=== PATIENT | male | born 2000 | race Caucasian/White ===

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

== ENCOUNTER 2019-09-18 05:59 | Emergency (ER) | payer BC, SELFPAY ==
[~2019-09-18] VITALS: Ht 167.6 cm; Wt 95.5 kg
[2019-09-18 08:00] VITALS: BP 136/72
--- NOTE | 2019-09-18 08:01 | REP ---
Clinical: Trauma. Technique: Frontal view of the chest with multiple views of the right hemithorax. Findings: Frontal view of the chest demonstrates no acute cardiopulmonary process. Multiple views of the right hemithorax demonstrates no obvious acute rib fracture or pathology. Impression: Normal right rib series Electronically Signed by Rashad Oliver MD 09/18/2019 07:50 A
== END 2019-09-18 08:04 | disposition home or self-care (01) ==
LOC: M ED 05:59
DX: S20.211A Contusion of right front wall of thorax, initial encounter (principal); W10.8XXA Fall (on) (from) other stairs and steps, initial encounter; Y92.89 Other specified places as the place of occurrence of the external cause; J45.909 Unspecified asthma, uncomplicated

== ENCOUNTER 2020-10-23 13:17 | Emergency (ER) | payer BC, SELFPAY ==
[~2020-10-23] VITALS: Ht 165.1 cm; Wt 97.5 kg
--- OUTSIDE RECORDS SUMMARY | 2020-10-23 13:24 | CCD | Continuity of Care Document ---
Author Author Anastacio MORA P.A. Organization Unknown Address [address] [place] [address] Phone [phone] Care Team Providers Care Drum Operator Name Role Phone Js Co Publi AUTM [phone] Problems Description No Information Available Social History Type Date Description Comments Sex Unknown Tobacco Use Start: Unknown Never Smoked Cigarettes ETOH Use Rarely consumes alcohol Allergies, Adverse Reactions, Alerts Description No Known Drug Allergies Medications Description No Active Medications Immunizations Description No Information Available Vital Signs Date Vital Result Comment 08/29/2020 9:42am BP Systolic 130 mmHg BP Diastolic 80 mmHg Heart Rate 90 /min Respiratory Rate 18 /min O2 % BldC Oximetry 99 % Body Temperature 97.7 F Weight 200.00 lb Height 65 inches 5'5" BMI (Body Mass Index) 33.3 kg/m2 Pain Level 0 Results Description No Information Available Procedures Description No Information Available Medical Devices Description No Information Available Encounters Type Date Location Provider Dx Diagnosis Office Visit 08/29/2020 9:30a [facility] Mehul Ordonez A08.4 Viral intestinal infection, unspecified Z20.828 Contact w and exposure to ot h viral communicable diseases Assessments Date Code Description Provider 08/29/2020 A08.4 Viral intestinal infection, unsp ecified Rosi Ordonez 08/29/2020 Z20.828 Contact with and (ha spected) exposure to other viral communicable diseases Rosi Ordonez Plan of Treatment No Information Available Functional Status Description No Information Available Mental Status Description No Information Available Referrals Description No Information Available
--- OUTSIDE RECORDS SUMMARY | 2020-10-23 13:24 | CCD ---
Author Author [facility] Organization [facility] Address Unknown Phone Unavailable Care Team Providers Care Ornamental Machine Operator Name Role Phone Joyce MARTINEZ MD Unavailable Unavailable Joyce MARTINEZ MD Unavailable Unavailable Joyce MARTINEZ MD Unavailable Unavailable Joyce MARTINEZ MD Unavailable Unavailable Joyce MARTINEZ MD Unavailable Unavailable Joyce MARTINEZ MD Unavailable Unavailable Joyce MARTINEZ MD Unavailable Unavailable Joyce MARTINEZ MD Unavailable Unavailable Joyce MARTINEZ MD Unavailable Unavailable Joyce MARTINEZ MD Unavailable Unavailable Joyce MARTINEZ MD Unavailable Unavailable Joyce MARTINEZ MD Unavailable Unavailable Joyce MARTINEZ MD Unavailable Unavailable Joyce MARTINEZ MD Unavailable Unavailable Joyce MARTINEZ MD Unavailable Unavailable Joyce MARTINEZ MD Unavailable Unavailable Joyce MARTINEZ MD Unavailable Unavailable Joyce MRATINEZ MD Unavailable Unavailable Joyce MARTINEZ MD Unavailable Unavailable Joyce MARTINEZ MD Unavailable Unavailable Joyce MARTINEZ MD Unavailable Unavailable Joyce MARTINEZ MD Unavailable Unavailable Joyce MARTINEZ MD Unavailable Unavailable Joyce MARTINEZ MD Unavailable Unavailable Joyce MARTINEZ MD Unavailable Unavailable Joyce MARTINEZ MD Unavailable Unavailable Joyce MARTINEZ MD Unavailable Unavailable Joyce MARTINEZ MD Unavailable Unavailable Joyce MARTINEZ MD Unavailable Unavailable Joyce MARTINEZ MD Unavailable Unavailable Joyce MARTINEZ MD Unavailable Unavailable Joyce MARTINEZ MD Unavailable Unavailable Joyce MARTINEZ MD Unavailable Unavailable Joyce MARTINEZ MD Unavailable Unavailable Joyce MARTINEZ MD Unavailable Unavailable Joyce MARTINEZ MD Unavailable Unavailable Joyce MARTINEZ MD Unavailable Unavailable Joyce MARTINEZ MD Unavailable Unavailable Joyce MARTINEZ MD Unavailable Unavailable Joyce MARTINEZ MD Unavailable Unavailable Joyce MARTINEZ MD Unavailable Unavailable Joyce MARTINEZ MD Unavailable Unavailable Joyce MARTINEZ MD Unavailable Unavailable Joyce MARTINEZ MD Unavailable Unavailable Joyce MARTINEZ MD Unavailable Unavailable Joyce MARTINEZ MD Unavailable Unavailable Joyce MARTINEZ MD Unavailable Unavailable ABBY, JOSE ROBERTO PA Unavailable Unavailable ABBY, JOSE ROBERTO PA Unavailable Unavailable ABBY, JOSE ROBERTO PA Unavailable Unavailable ABBY, JOSE ROBERTO PA Unavailable Unavailable ABBY, JOSE ROBERTO PA Unavailable Unavailable ABBY, JOSE ROBERTO PA Unavailable Unavailable ABBY, JOSE ROBERTO PA Unavailable Unavailable ABBY, JOSE ROBERTO PA Unavailable Unavailable ABBY, JOSE ROBERTO PA Unavailable Unavailable ABBY, JOSE ROBERTO PA Unavailable Unavailable ABBY, JOSE ROBERTO PA Unavailable Unavailable ABBY, JOSE ROBERTO PA Unavailable Unavailable ABBY, JOSE ROBERTO PA Unavailable Unavailable ABBY, JOSE ROBERTO PA Unavailable Unavailable ABBY, JOSE ROBERTO PA Unavailable Unavailable ABBY, JOSE ROBERTO PA Unavailable Unavailable ABBY, JOSE ROBERTO PA Unavailable Unavailable ABBY, JOSE ROBERTO PA Unavailable Unavailable ABBY, JOSE ROBERTO PA Unavailable Unavailable ABBY, JOSE ROBERTO PA Unavailable Unavailable ABBY, JOSE ROBERTO PA Unavailable Unavailable ABBY, JOSE ROBERTO PA Unavailable Unavailable ABBY, JOSE ROBERTO PA Unavailable Unavailable ABBY, JOSE ROBERTO PA Unavailable Unavailable ABBY, JOSE ROBERTO PA Unavailable Unavailable ABBY, JOSE ROBERTO PA Unavailable Unavailable ABBY, JOSE ROBERTO PA Unavailable Unavailable ABBY, JOSE ROBERTO PA Unavailable Unavailable ABBY, JOSE ROBERTO PA Unavailable Unavailable ABBY, JOSE ROBERTO PA Unavailable Unavailable ABBY, JOSE ROBERTO PA Unavailable Unavailable ABBY, JOSE ROBERTO PA Unavailable Unavailable ABBY, JOSE ROBERTO PA Unavailable Unavailable ABBY, JOSE ROBERTO PA Unavailable Unavailable ABBY, JOSE ROBERTO PA Unavailable Unavailable ABBY, JOSE ROBERTO PA Unavailable Unavailable ABBY, JOSE ROBERTO PA Unavailable Unavailable ABBY, JOSE ROBERTO PA Unavailable Unavailable Joyce MARTINEZ MD Unavailable Unavailable Joyce MARTINEZ MD Unavailable Unavailable Joyce MARTINEZ MD Unavailable Unavailable Joyce MARTINEZ MD Unavailable Unavailable Joyce MARTINEZ MD Unavailable Unavailable Joyce MARTINEZ MD Unavailable Unavailable Joyce MARTINEZ MD Unavailable Unavailable Joyce MARTINEZ MD Unavailable Unavailable Joyce MARTINEZ MD Unavailable Unavailable Joyce MARTINEZ MD Unavailable Unavailable Joyce MARTINEZ MD Unavailable Unavailable Joyce MARTINEZ MD Unavailable Unavailable Joyce MARTINEZ MD Unavailable Unavailable Joyce MARTINEZ MD Unavailable Unavailable Joyce MARTINEZ MD Unavailable Unavailable Joyce MARTINEZ MD Unavailable Unavailable Joyce MARTINEZ MD Unavailable Unavailable Joyce MARTINEZ MD Unavailable Unavailable Joyce MARTINEZ MD Unavailable Unavailable Joyce MARTINEZ MD Unavailable Unavailable Joyce MARTINEZ MD Unavailable Unavailable Joyce MARTINEZ MD Unavailable Unavailable Joyce MRATINEZ MD Unavailable Unavailable Joyce MARTINEZ MD Unavailable Unavailable Joyce MARTINEZ MD Unavailable Unavailable Joyce MARTINEZ MD Unavailable Unavailable Joyce MARTINEZ MD Unavailable Unavailable Joyce MARTINEZ MD Unavailable Unavailable Joyce MARTINEZ MD Unavailable Unavailable Joyce MARTINEZ MD Unavailable Unavailable Joyce MARTINEZ MD Unavailable Unavailable Joyce MARTINEZ MD Unavailable Unavailable Joyce MARTINEZ MD Unavailable Unavailable Joyce MARTINEZ MD Unavailable Unavailable Joyce MARTINEZ MD Unavailable Unavailable Joyce MARTINEZ MD Unavailable Unavailable Joyce MARTINEZ MD Unavailable Unavailable Joyce MARTINEZ MD Unavailable Unavailable Joyce MARTINEZ MD Unavailable Unavailable Joyce MARTINEZ MD Unavailable Unavailable Joyce MARTINEZ MD Unavailable Unavailable Joyce MARTINEZ MD Unavailable Unavailable Joyce MARTINEZ MD Unavailable Unavailable Joyce MARTINEZ MD Unavailable Unavailable Joyce MARTINEZ MD Unavailable Unavailable Joyce MARTINEZ MD Unavailable Unavailable Joyce MARTINEZ MD Unavailable Unavailable Elana CARVAJAL MD Unavailable Unavailable Elana CARVAJAL MD Unavailable Unavailable Elana CARVAJAL MD Unavailable Unavailable Elana CARVAJAL MD Unavailable Unavailable Elana CARVAJAL MD Unavailable Unavailable Elana CARVAJAL MD Unavailable Unavailable Elana CARVAJAL MD Unavailable Unavailable Elana CARVAJAL MD Unavailable Unavailable Elana CARVAJAL MD Unavailable Unavailable Elana CARVAJAL MD Unavailable Unavailable Elana CARVAJAL MD Unavailable Unavailable Elana CARVAJAL MD Unavailable Unavailable Elana CARVAJAL MD Unavailable Unavailable Elana CARVAJAL MD Unavailable Unavailable Elana CARVAJAL MD Unavailable Unavailable Elana CARVAJAL MD Unavailable Unavailable Elana CARVAJAL MD Unavailable Unavailable Elana CARVAJAL MD Unavailable Unavailable Elana CARVAJAL MD Unavailable Unavailable Elana CARVAJAL MD Unavailable Unavailable Elana CARVAJAL MD Unavailable Unavailable Elana CARVAJAL MD Unavailable Unavailable Elana CARVAJAL MD Unavailable Unavailable Elana CARVAJAL MD Unavailable Unavailable Elana CARVAJAL MD Unavailable Unavailable Elana CARVAJAL MD Unavailable Unavailable Elana CARVAJAL MD Unavailable Unavailable Elana CARVAJAL MD Unavailable Unavailable Elana CARVAJAL MD Unavailable Unavailable Elana CARVAJAL MD Unavailable Unavailable Elana CARVAJAL MD Unavailable Unavailable Elana CARVAJAL MD Unavailable Unavailable Elana CARVAJAL MD Unavailable Unavailable Elana CARVAJAL MD Unavailable Unavailable Re-disclosure Warning The records that you are about to access may contain information from federally-assisted alcohol or drug abuse programs. If such information is present, then the following federally mandated warning applies: This information has been disclosed to you from records protected by federal confidentiality rules (42 CFR part 2). The federal rules prohibit you from making any further disclosure of this information unless further disclosure is expressly permitted by the written consent of the person to whom it pertains or as otherwise permitted by 42 CFR part 2. A general authorization for the release of medical or other information is NOT sufficient for this purpose. The Federal rules restrict any use of the information to criminally investigate or prosecute any alcohol or drug abuse patient.The records that you are about to access may contain highly sensitive health information, the redisclosure of which is protected by Article 27-F of the [facility] Public Health law. If you continue you may have access to information: Regarding HIV / AIDS; Provided by facilities licensed or operated by the [facility] Office of Mental Health; or Provided by the [facility] Office for People With Developmental Disabilities. If such information is present, then the following [facility] mandated warning applies: This information has been disclosed to you from confidential records which are protected by state law. State law prohibits you from making any further disclosure of this information without the specific written consent of the person to whom it pertains, or as otherwise permitted by law. Any unauthorized further disclosure in violation of state law may result in a fine or custodial sentence or both. A general authorization for the release of medical or other information is NOT sufficient authorization for further disc losure. Family History Family Member Name Family Member Gender Family Member Status Date o f Status Description Data Source(s) Unknown Unknown Problem [facility] ([facility]) Unknown Female Problem [facility] ([facility]) Encounters Encounter Providers Location Date Indications Data Source(s ) Outpatient Attender: JOSE ROBERTO lopez 08/29/2020 08:30:00 AM EST [facility] ([facility] Outpatient Referrer: TEE MARTINEZ MD 12/01/2019 03:09: 00 PM EDT [facility] Outpatient Referrer: TEE MARTINEZ MD 12/01/2019 03:06: 00 PM EDT [facility] Outpatient Referrer: TEE MARTINEZ MD 12/01/2019 03:01: 00 PM EDT [facility] Outpatient Attender: TEE MARTINEZ MD Main Office 12/01/2019 02:15:00 PM EDT [facility] ([facility]) Outpatient Referrer: GERARDO CARVAJAL MD 10/18/2019 06:08:00 PM EST [facility] Outpatient Referrer: GERARDO CARVAJAL MD 10/03/2019 07:50:00 PM EST [facility] Medications Medication Brand Name Start Date Product Form Dose Route Admi nistrative Instructions Pharmacy Instructions Status Indications Reaction Description Data Source(s) 90 mcg/actuation 06/20/2019 12:00:00 AM EDT HFA aerosol inha ler 36 INHALE TWO PUFFS BY MOUTH EVERY 4 HOURS NEEDED FOR WHEEZING AND SEVERE COUGHING INHALE TWO PUFFS BY MOUTH EVERY 4 HOURS NEEDED FOR WHEEZING AND SEVERE COUGHING SOLD: 10/01/2019 [facility] Insurance Providers Payer name Policy type / Coverage type Policy ID Covered constitution party ID Covered constitution party's relationship to velazquez Policy Velazquez Plan Information [place] P[place] 302/307 [id number] SP [id number] SELF PAY ONLY [id number] SP [id number] EXCELLUS BCBS B [id number] S UTS [id number] [facility] O [id number] S [id number] SELF PAY ONLY [id number] SP [id number] Wallace Birdi [id number] Self [id number] [place] PPO 302/307 [id number] SP [id number] Wallace Birdi [id number] Self [id number] BCBS DO Not Use Health Maintenance Organization (HMO) [id number] Self [id number] [facility] COMMUNITY PLAN [facility] [id number] SP [id number] Pupil Benefits (pr) Commercial [id number] Self [id number] BS Child HLTH PL(ZFB,Vyb) Health Maintenance Organization (HMO) VYB [id number] Self [id number] [facility] Community Plan Medigap Part B [id number] Self [id number] BS [place] Commercial [id number] Family Dependent [id number] BS [place] Commercial Family Dependent Pupil Benefits (pr) Commercial Self BS Child HLTH PL(ZFB,Vyb) Health Maintenance Organization (HMO) Self [facility] Community Plan Commercial Self ENMANUEL VAZQUEZ WORKER COMP [id number] SP [id number] Self Pay P UNAVAILABLE S UNAVAILA BLE HMO BLUE [id number] SP [id number] D Managed Care [facility] P [id number] S [id number] D Healthplex S [id number] S EXCELLUS BCBS P [id number] S [id number] Results ID Date Data Source [id number] 08/29/2020 12:00:00 AM EST [facility] Name Value Range Interpretation Code Description Data Bernadette rce(s) Supporting Document(s) SARS coronavirus 2 [facility] This lab was ordered by [facility] and reported by [facility]. ID Date Data Source [id number] 12/01/2019 12:00:00 AM EDT [facility] Tee Martinez MD Patient Name: PEDRO HENDRIX [facility] [address] Date of Exam: 12/01/2019#: Fax: [phone] EXAM: KNEE LEFT (1 OR 2VIEWS) X-RAYCLINICAL INFORMATION: Pain. No history of trauma.Three views. These images were obtained using digital radiography.There are no prior left knee xrays for comparison.The compartments are symmetric and well maintained. There is no acutefracture or destructive osseous lesion.BHARGAVI Vazquez/Liliana cleveland for referring EVELYN HENDRIX to our office. Electronically Signed - KELVIN BOWMAN DO 12/01/19 16:41 Name Value Range Interpretation Code Description Data Bernadette rce(s) Supporting Document(s) Procedure Vital Signs ID Date Data Source UNK Name Value Range Interpretation Code Description Data Source(s) Body mass index (BMI) [Ratio] 33.3 kg/m2 33.3 k g/m2 [facility] Body height 65 [in_i] 65 [in_i] [facility] ([facility], [facility]) 5'5" Body weight 200.00 [lb_av] 200.00 [lb_av] MED[facility] T ([facility], [facility]) Body temperature 97.7 [degF] 97.7 [degF] [facility] ([facility], [facility]) Oxygen saturation in Arterial blood by Pulse oximetry 99 % 99 % [facility] ([facility], [facility]) Respiratory rate 18 /min 18 /min [facility] ( [facility], [facility]) Heart rate 90 /min 90 /min [facility] ([facility], [facility]) Diastolic blood pressure 80 mm[Hg] 80 mm[Hg] [facility] ([facility], [facility]) Systolic blood pressure 130 mm[Hg] 130 mm[Hg] [facility], [facility]) Body weight 95.313 kg 95.313 kg [facility] ([facility]) Body weight 210.12 [lb_av] 210.12 [lb_av] MED[facility] T ([facility])
--- OUTSIDE RECORDS SUMMARY | 2020-10-23 13:24 | CCD | Continuity of Care Document ---
Author Author Anastacio MORA P.A. Organization Unknown Address [address] [place] [address] Phone [phone] Care Team Providers Care Hydrogen Plant Operations Manager Name Role Phone Js [employer] Publi AUTM [phone] Problems Description No Information Available Social History [...]
[2020-10-23] MEDS ORDERED: IBUPROFEN 600MG TAB PO ONE (13:45)
[2020-10-23] MEDS ORDERED: ACETAMINOPHEN TAB 650MG DOSE (2X325MG) PO ONE (13:45)
--- OUTSIDE RECORDS SUMMARY | 2020-10-23 13:53 | CCD ---
Author Author [facility] Organization [facility] Address Unknown Phone Unavailable Care Team Providers Care Automatic Thread Winder Name Role Phone Joyce MARTINEZ MD Unavailable [...] Unavailable Unavailable Joyce MARTINEZ MD Unavailable Unavailable Joyec MARTINEZ MD Unavailable Unavailable Joyce MARTINEZ MD [...] ABBY, JOSE ROBERTO PA Unavailable Unavailable ABBY, JSOE ROBERTO PA Unavailable Unavailable ABBY, JOSE ROBERTO PA Unavailable Unavailable ABBY, JOSE ROBERTO PA Unavailable Unavailable ABBY, JOSE ROBERTO PA Unavailable Unavailable Joyce MARTINEZ MD Unavailable Unavailable Joyce MARTINEZ MD Unavailable Unavailable Jocye MARTINEZ MD Unavailable Unavailable Joyce MARTINEZ MD [...] is protected by Article 27-F of the [facility] Public Health law. If you continue you may have access to information: Regarding HIV / AIDS; Provided by facilities licensed or operated by the [facility] Office of Mental Health; or Provided by the [facility] Office for People With Developmental Disabilities. If such information is present, then the following [facility] mandated warning applies: This information has been [...] law may result in a fine or prison sentence or both. A general authorization for the release of medical or other information is NOT sufficient authorization for further disc losure. Family History Family Member Name Family Member Gender Family Member Status Date o f Status Description Data Source(s) Unknown Unknown Problem [facility] ([facility]) Unknown Female Problem [facility] ([facility]) Encounters Encounter Providers Location Date Indications Data Source(s ) Outpatient Attender: JOSE ROBERTO lopez 08/29/2020 08:30:00 AM EST [facility] ([facility] Outpatient Referrer: TEE MARTINEZ MD 12/01/2019 03:09: 00 PM EDT [facility] Outpatient Referrer: TEE MARTINEZ MD 12/01/2019 03:06: 00 PM EDT [facility] Outpatient Referrer: TEE MARTINEZ MD 12/01/2019 03:01: 00 PM EDT [facility] Outpatient Attender: TEE MARTINEZ MD Main Office 12/01/2019 02:15:00 PM EDT [facility] ([facility]) Outpatient Referrer: GERARDO CARVAJAL MD 10/18/2019 06:08:00 PM EST [facility] Outpatient Referrer: GERARDO CARVAJAL MD 10/03/2019 07:50:00 PM EST [facility] Medications Medication Brand Name Start [...] type / Coverage type Policy ID Covered alliance party ID Covered alliance party's relationship to velazquez Policy Velazquez Plan Information [place] PPO 302/307 [id number] SP [id number] SELF PAY ONLY [id number] SP [id number] EXCELLUS BCBS B [id number] S UTS [id number] [facility] O [id number] S [id number] SELF PAY ONLY [id number] SP [id number] [place] [employer] [id number] Self [id number] [place] PPO 302/307 [id number] SP [id number] [place] [employer] [id number] Self [id number] BCBS DO Not Use Health Maintenance Organization (HMO) [id number] Self [id number] [facility] COMMUNITY PLAN [facility] [id number] SP [id number] Pupil Benefits (pr) Commercial [id number] Self [id number] BS Child HLTH PL(ZFB,Vyb) Health Maintenance Organization (HMO) VYB [id number] Self [id number] [facility] Community Plan Medigap Part B [id number] Self [id number] [place] Commercial [id number] Family Dependent [id number] BS [place] Commercial Family Dependent Pupil Benefits (pr) Commercial Self BS Child HLTH PL(ZFB,Vyb) Health Maintenance Organization (HMO) Self [facility] Community Plan Commercial Self ENMANUEL VAZQUEZ WORKER COMP [id number] SP [id number] Self Pay P UNAVAILABLE S UNAVAILA BLE HMO BLUE [id number] SP [id number] D Managed Care [facility] P [id number] S [id number] D Healthplex S [id number] S EXCELLUS BCBS P [id number] S VYB [id number] Results ID Date Data Source [id number] 08/29/2020 12:00:00 AM EST [facility] Name Value Range Interpretation Code Description Data Bernadette rce(s) Supporting Document(s) SARS coronavirus 2 [facility] This lab was ordered by [facility] and reported by [facility]. ID Date Data Source [id number] 12/01/2019 12:00:00 AM EDT [facility] Tee Martinez MD Patient Name: PEDRO HENDRIX [facility] 2000[facility] [address] Date of Exam: 12/01/2019#: Fax: [phone] EXAM: [...] (BMI) [Ratio] 33.3 kg/m2 33.3 k g/m2 [facility]) Body height 65 [in_i] 65 [in_i] [facility] ([facility], [facility]) 5'5" Body weight 200.00 [lb_av] 200.00 [lb_av] MEDEN T ([facility], [facility]) Body temperature 97.7 [degF] 97.7 [degF] [facility] ([facility], [facility]) Oxygen saturation in Arterial blood by Pulse oximetry 99 % 99 % [facility] ([facility], [facility]) Respiratory rate 18 /min 18 /min [facility] ( [facility], [facility]) Heart rate 90 /min 90 /min [facility] ([facility], [facility]) Diastolic blood pressure 80 mm[Hg] 80 mm[Hg] [facility] ([facility], [facility]) Systolic blood pressure 130 mm[Hg] 130 mm[facility]Hg] [facility], [facility]) Body weight 95.313 kg 95.313 kg [facility] ([facility]) Body weight 210.12 [lb_av] 210.12 [lb_av] [facility] T ([facility])
--- NOTE | 2020-10-23 14:22 | REP ---
INDICATION: trauma. COMPARISON: Comparison chest x-ray 09/18/2019. TECHNIQUE: Two views.. FINDINGS: The lungs are well inflated and free of infiltrate. The pleural angles are sharp. The heart size is normal. Pulmonary vasculature is not increased. No significant bony abnormality is seen. The patient was apparently unable to raise 1 of his arms out of the field for the lateral radiograph. A grade 2 AC separation injury is observed on the right. IMPRESSION: No active disease. There is a AC separation injury in the right shoulder, grade 2.. <Electronically signed by Sunny Cardoso > 10/23/20 [id number]
--- NOTE | 2020-10-23 14:24 | REP ---
INDICATION: trauma. COMPARISON: None. TECHNIQUE: AP and tangential scapular Y views are presented. FINDINGS: The right glenohumeral articulation is normally aligned. No scapular or glenoid or proximal humeral fracture is seen. There is an AC separation injury with the right distal clavicle elevated above the plane of the acromion process, grade 2-3 AC separation injury. The coracoclavicular clavicular interval is somewhat widened to 1 cm. No fracture is seen. IMPRESSION: Grade 2-3 AC separation injury on the right side. No fracture noted. <Electronically signed by Sunny Cardoso > 10/23/20 [id number]
[2020-10-23 14:47] VITALS: BP 120/59
== END 2020-10-23 15:07 | disposition home or self-care (01) ==
LOC: M ED 13:17
DX: S43.111A Subluxation of right acromioclavicular joint, initial encounter (principal); W19.XXXA Unspecified fall, initial encounter; Y92.9 Unspecified place or not applicable; Y93.23 Activity, snow (alpine) (downhill) skiing, snowboarding, sledding, tobogganing and snow tubing; Y99.9 Unspecified external cause status

== ENCOUNTER → 2024-12-01 | Outpatient (CLI) | payer OTHER | LOC: M OUTALCOH 07:32 | PROVIDERS: ATTEND Psychiatry & Neurology Psychiatry | DX: F10.10 Alcohol abuse, uncomplicated (principal) ==

== ENCOUNTER 2024-12-17 15:50 | Outpatient (RCR) | payer OTHER | END 2024-12-21 | LOC: M OUTALCOH 15:50 | PROVIDERS: ATTEND Psychiatry & Neurology Psychiatry | DX: F10.10 Alcohol abuse, uncomplicated (principal) ==

== ENCOUNTER 2025-01-14 16:00 | Outpatient (RCR) | payer OTHER | END 2025-01-20 | LOC: M OUTALCOH 16:00 | PROVIDERS: ATTEND Psychiatry & Neurology Psychiatry | DX: F10.10 Alcohol abuse, uncomplicated (principal) ==